=== PATIENT | male | born 1935 | race Caucasian/White ===

== ENCOUNTER → 2016-11-30 | Outpatient (CLI) | payer MEDICARE, BC ==
[2014-11-26 15:28] VITALS: BP 150/70
[~2016-11-30] MED LIST: ALPR0.254 PO; AMLO5TAB2 PO; CITA10TA8 PO; HYDR-2762 PO; IBUP-1060 PO; LISI-334 PO; LORA10TA3 PO; NAPR500T3 PO; OMEP40CA5 PO; ROPI1TAB PO
--- NOTE | 2016-11-30 15:10 | RAD ---
MR BRAIN HISTORY: MEMORY LOSS, RECENT FALLS WITH UNSTEADY GAIT, NO SX HX, NO PRIORS TECHNIQUE: Axial diffusion weighted imaging was obtained. Additional sagittal T1, axial T1, axial FLAIR, and axial T2 weighted imaging of the brain was also performed. FINDINGS: There are scattered foci of T2/FLAIR signal hyperintensity throughout the periventricular and deep hemispheric white matter bilaterally. This is nonspecific but most likely related to chronic small vessel ischemic disease. An old lacunar infarct is noted in the left buchanan radiata. There is also an old lacunar infarct in the left cerebellar hemisphere. No restricted diffusion to indicate acute infarct. No extra-axial fluid collections. No midline shift or mass effect. Ventricular size is appropriate. Midline structures have a normal anatomic configuration. Basal cisterns are patent. Arterial flow voids at the skull base and major dural venous sinuses are maintained. The right globe demonstrates a thin lens. Paranasal sinuses and mastoid air cells are clear. IMPRESSION: No acute or recent infarct. No acute intracranial abnormality. 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 Electronically signed by: Thad Johansen MD (11/30/2016 3:07 PM)
== END | disposition home or self-care (01) ==
LOC: MRI 14:05
PROVIDERS: ATTEND Nurse Practitioner Adult Health
DX: I63.9 Cerebral infarction, unspecified (principal); G31.84 Mild cognitive impairment of uncertain or unknown etiology; R53.1 Weakness; R29.6 Repeated falls; I10 Essential (primary) hypertension; F41.8 Other specified anxiety disorders; R26.81 Unsteadiness on feet
CPT/HCPCS: 70551

== ENCOUNTER → 2017-03-12 | Outpatient (CLI) | payer MEDICARE, BC ==
[2014-11-26 15:28] VITALS: BP 150/70
--- NOTE | 2017-03-12 08:46 | KCIC ---
MRI Lumbar Spine without contrast History: Radiculitis, chronic low back pain, pain in the lower extremities bilaterally Technique: Multiplanar, multi sequential noncontrast MR imaging was performed of the lumbar spine. Contrast: None Comparison: None available at this time Findings: There is grade 1 anterior spondylolisthesis at L4-5. Lumbar vertebral body stature is overall adequate, multilevel small Schmorl's nodes. There is multilevel variable advanced degenerative disc disease throughout the lumbar spine. There is multilevel endplate edema greatest at L2-3, L4-5, L5-S1, to lesser degree L1-2, very minimally at L3-4. There are T2 hyperintense foci of the sacrum bilaterally centered about S2-S3 levels likely due to Tarlov cysts, largest on the right up to approximately 1.6 cm AP and on the left up to 2.2 cm longitudinal. Conus terminates at L1. There is very mild S-shaped scoliosis. Some edema of the bilateral L5 pedicles extending to the facet articular processes is likely reactive/degenerative in etiology. T11-12: There is buckling of the ligamentum flavum and facet degenerative change on the right. There is a very shallow posterior bulge/protrusion. Spinal canal is not significantly narrowed. There is likely [id number] narrowing of the right neural foramen. T12-L1: There is facet degenerative change and minimal buckling of the ligamentum flavum. There is a very small extrusion below the intervertebral disc space in the right lateral recess, mild right lateral recess stenosis. There is mild narrowing of the right neural foramen. L1-L2: There is a broad protrusion more eccentric to the left lateral recess, associated annular tear. There is severe buckling of the ligamentum flavum and moderate facet hypertrophic change. There is prominence of posterior epidural fat. Combination of findings results in severe left lateral recess stenosis and contact descending left as L2 nerve root, moderate narrowing of the central canal and right lateral recess. There is moderate to severe narrowing the right neural foramen, also fairly severe narrowing the left neural foramen. There is contact of the exiting L1 nerve roots greater on the left. L2-L3: There is prominence of posterior epidural fat. There is mild to moderate buckling of the ligamentum flavum and moderate facet hypertrophic change. There is a broad protrusion. There is [id number] narrowing of the far left lateral recess. There is mild attenuation of the thecal sac mostly from posterior epidural lipomatosis. There is moderate narrowing of the left neural foramen, right neural foramen adequate. L3-L4: There is minimal disc osteophyte complex and bulge. There is mild narrowing of the far left lateral recess. There is prominence of posterior epidural fat. There is mild buckling of the ligamentum flavum and [id number] facet hypertrophic change. Right neural foramen is adequate. There is moderate narrowing of the left neural foramen. L4-L5: There is fairly severe right and moderate left facet degenerative change. There is mild to moderate buckling of the ligamentum flavum. There is prominence of posterior epidural fat. There is mild partial uncovering of the posterior aspect of the disc due to spondylolisthesis with superimposed bulge/protrusion. There is overall mild narrowing of the far lateral recesses bilaterally greater on the right. There is moderate to severe narrowing of the right neural foramen with contact exiting right L4 nerve root, [id number] narrowing of the left neural foramen. L5-S1: There is shallow broad protrusion more eccentric to the right lateral recess. There is mild facet hypertrophic change greater on the left. Spinal canal is overall adequate. There is moderate to severe neural foramina compromise bilaterally with contact of the exiting L5 nerve roots. Disc osteophyte complex is also near the extraforaminal right L5 nerve root. Impression: 1. There is multilevel fairly advanced degenerative disc disease throughout lumbar spine, variably endplate edema likely reactive/degenerative in etiology. There is multilevel mild spondylosis. 2. There is severe left lateral recess stenosis L1-2, moderate narrowing of the central canal and right lateral recess at this level. There is other variable lateral recess stenosis as described greatest in the left at L2-3. 3. There is multilevel lumbar neural foramina compromise, moderate to severe narrowing bilaterally at L5-S1 and L1-2 and on the right at L4-5, to lesser degree at other levels. 4. 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 5. There is mild grade 1 anterior spondylolisthesis at L4-5 at which there is facet degenerative change. Electronically signed by: Barrett Evans MD (03/12/2017 8:42 AM) [facility]
== END | disposition home or self-care (01) ==
LOC: KCIC MRI 07:42
PROVIDERS: ATTEND Anesthesiology Pain Medicine
DX: M51.16 Intervertebral disc disorders with radiculopathy, lumbar region (principal); M48.06 Spinal stenosis, lumbar region; M47.896 Other spondylosis, lumbar region; G89.29 Other chronic pain
CPT/HCPCS: 72148

== ENCOUNTER → 2018-02-04 | Outpatient (CLI) | payer MEDICARE, BC | END | disposition home or self-care (01) | LOC: KCIC MRI 08:02 | DX: M19.072 Primary osteoarthritis, left ankle and foot (principal); M72.2 Plantar fascial fibromatosis; I10 Essential (primary) hypertension; M16.12 Unilateral primary osteoarthritis, left hip | CPT/HCPCS: 73721 ==

== ENCOUNTER 2018-10-16 11:27 | Inpatient (IN) | payer MEDICARE, BC ==
[~2018-10-16] VITALS: Ht 180.3 cm; Wt 57.2 kg
[~2018-10-16 11:27] MED LIST changes: +AMLO5TAB10 PO; -AMLO5TAB2 PO; -HYDR-2762 PO; +HYDR-2765 PO; +NAPR-514 PO; -NAPR500T3 PO
[2018-10-16] MEDS ORDERED: LIDOCAINE 1% PF 2 ML VIAL. ONE (12:52)
[2018-10-16] MEDS ORDERED: IOHEXOL 300 MG/ML 100ML VIAL. ONE (12:52)
[2018-10-16] MEDS ORDERED: IODIXANOL 320 MG/ML 100 ML VIAL. ONE (12:56)
[2018-10-16] MEDS ORDERED: fentaNYL PF VIAL 100 MCG/2 ML VIAL ONE (13:08)
[2018-10-16] MEDS ORDERED: MIDAZOLAM HCL/PF 2 MG/2 ML VIAL. ONE (13:08)
[2018-10-16] MEDS ORDERED: VERAPAMIL 5 MG/2 ML VIAL. ONE (13:08)
[2018-10-16] MEDS ORDERED: HEPARIN for IV BOLUS 10,000 UNIT/10 ML VIAL. ONE (13:08)
[2018-10-16] MEDS ORDERED: NITROGLYCERIN 200 MCG/2 ML SYRINGE FOR CATH/VASC LAB. ONE ×2 (13:08→14:00)
[2018-10-16] MEDS ORDERED: MIDAZOLAM HCL/PF 2 MG/2 ML VIAL. IV ONE (13:30)
[2018-10-16] MEDS ORDERED: VERAPAMIL 5 MG/2 ML VIAL. IART ONE (13:30)
[2018-10-16] MEDS ORDERED: fentaNYL PF VIAL 100 MCG/2 ML VIAL IV ONE (13:30)
[2018-10-16] MEDS ORDERED: HEPARIN for IV BOLUS 10,000 UNIT/10 ML VIAL. IART ONE (13:30)
[2018-10-16] MEDS ORDERED: LIDOCAINE 1% PF 2 ML VIAL. INJ ONE (13:30)
[2018-10-16] MEDS ORDERED: NITROGLYCERIN 200 MCG/2 ML SYRINGE FOR CATH/VASC LAB. IART ONE (13:30)
[2018-10-16] MEDS ORDERED: CLOPIDOGREL BISULFATE 75 MG TABLET PO ONE (14:00)
[2018-10-16] MEDS ORDERED: IV NORMAL SALINE 500ML BAG 500 ML IV ONE (14:00)
[2018-10-16 14:02] VITALS: BP 157/86
--- NOTE | 2018-10-16 14:10 | PDOC ---
Provider Note Provider Note CC: Chest pain HPI: 83 y.o male presented to OSH with chest pain. Positive troponin and significant EKG changes, brought to [facility] urgent cath. At baseline he has been doing well. No chest pain, orthopnea, PND or LE edema. He woke up with "funny" feeling and went to PCP, ekg showed possible anterior ischemia, then he was sent to ER where trop was elevated at 0.9. Now without any chest pain . Pmhx: 1. HTN 2. Prior tobacco abuse Famhx: No significant history. Sochx: prior smoker, no illicits, no alcohol. Lives with . Meds: See MRAD ALL: NKDA GEN.: No apparent distress. Alert and oriented. HEENT: Head is normocephalic, atraumatic NECK: Supple. LUNGS: Clear to auscultation. HEART: RRR, S1, S2 present. Peripheral pulses intact ABDOMEN: Soft, nontender. Positive bowel sounds. EXTREMITIES: Without any cyanosis. NEUROLOGIC: Normal speech, normal tone PSYCHIATRIC: Normal affect, normal mood. SKIN: No ulcerations Labs reviewed. Cr 1.5 Cath with one vessel cAD Impression: 1. Troponin elevation likely due to spasm - type 2 NSTEMI 2. HTN Plan: 1. Continue asa, plavix, statin therapy 2. Plan for imdur therapy and b-cassie. 3. if asymptomatic in a.m ok to DC. May consider outpt PCI if needed if persistent pain on two anti-anginals. Thanks FREDIS RAMIREZ MD Oct 16, 2018 14:10
[2018-10-16] MEDS ORDERED: ATOR10TA PO (14:38)
[2018-10-16] MEDS ORDERED: TAMS0.4C97 PO (14:38)
[2018-10-16] MEDS ORDERED: AMLO5TAB4 PO (14:38)
[2018-10-16] MEDS: ISOSORBIDE MONONITRATE ER 30 MG TAB.ER.24H PO SCH (14:51)
[2018-10-16 15:23] VITALS: BP 149/70
--- NOTE | 2018-10-16 16:27 | PDOC1 ---
History and Physical Date of Admission Date of Admission DATE: 10/16/18 TIME: 16:18 Identification/Chief Complaint Chief Complaint PRESENTED TO PCP OFFICE, WITH UNSTABLE CHEST PAIN, TRANSPORTED HERE FOR EMERGENT CATH TODAY Past Medical History Past Medical History Past Medical History Cardiovascular: HTN Family History Family History: Hypertension Social History Smoke: No ALCOHOL: none Drugs: None ROS Review of System ROS 14 pt otherwise neg Physical Exam General: Cooperative, HEENT: Atraumatic, PERRLA, EOMI, Mucous membr. moist/pink Lungs: Clear to auscultation, Normal air movement Heart: S1S2, RRR, no gallops, no murmurs, no jug vein distention Abdomen: Normal bowel sounds, Soft, No tenderness, No hepatospenomegaly, No masses Extremities: No clubbing, No cyanosis, No edema, Normal pulses, No tenderness/ swelling Skin: No rashes, No breakdown, No significant lesion Neuro: Normal tone, Sensation intact, Cranial nerves 3-12 NL Cardiovascular: HTN, Hyperlipidemia Pulmonary: No pertinent hx Heme/Onc: No pertinent hx Renal/: No pertinent hx, Benign prostatic enlarg. Family History Family History: Hypertension Social History Smoke: Quit ALCOHOL: none Drugs: None Current Medications Current Medications Current Medications Lidocaine HCl (Xylocaine-Mpf 1% 2ml Vial) 2 ml STK-MED ONCE .ROUTE ; Start 10/16 at 12:52; Stop 10/16/18 at 12:53; Status DC Iohexol (Omnipaque 300 Mg/ml) 100 ml STK-MED ONCE .ROUTE ; Start 10/16/18 at 12: 52; Stop 10/16/18 at 12:53; Status DC Heparin Sodium/ Sodium Chloride 1,000 ml @ As Directed STK-MED ONCE .ROUTE ; Start 10/16/18 at 12:52; Stop 10/16/18 at 12:53; Status DC Iodixanol (Visipaque 320) 100 ml STK-MED ONCE .ROUTE ; Start 10/16/18 at 12:56; Stop 10/16/18 at 12:57; Status DC Fentanyl Citrate (Fentanyl 2ml Vial) 100 mcg STK-MED ONCE .ROUTE ; Start at 13:08; Stop 10/16/18 at 13:09; Status DC Midazolam HCl (Versed) 2 mg STK-MED ONCE .ROUTE ; Start 10/16/18 at 13:08; Stop 10/16/18 at 13:09; Status DC Heparin Sodium (Porcine) (Heparin Sodium) 10,000 unit STK-MED ONCE .ROUTE ; Start 10/16/18 at 13:08; Stop 10/16/18 at 13:09; Status DC Verapamil HCl (Verapamil) 5 mg STK-MED ONCE .ROUTE ; Start 10/16/18 at 13:08; Stop 10/16/18 at 13:09; Status DC Nitroglycerin (Nitroglycerin) 200 mcg STK-MED ONCE .ROUTE ; Start 10/16/18 at 13 :08; Stop 10/16/18 at 13:09; Status DC Nitroglycerin (Nitroglycerin) 200 mcg 1X ONCE IART Last administered on at 13:30; Start 10/16/18 at 13:30; Stop 10/16/18 at 13:31; Status DC Verapamil HCl (Verapamil) 2.5 mg 1X ONCE IART Last administered on 10/16/18 13:30; Start 10/16/18 at 13:30; Stop 10/16/18 at 13:31; Status DC Heparin Sodium (Porcine) (Heparin Sodium) 2,500 unit 1X ONCE IART Last administered on 10/16/18 13:30; Start 10/16/18 at 13:30; Stop 10/16/18 at 13:31 ; Status DC Heparin Sodium/ Sodium Chloride (HEPARIN for ARTERIAL LINE FLUSH) 1,000 unit 1X ONCE IART Last administered on 10/16/18 13:30; Start 10/16/18 at 13:30; Stop 10/16/18 at 13:31; Status DC Heparin Sodium/ Sodium Chloride (HEPARIN for ARTERIAL LINE FLUSH) 1,000 unit 1X ONCE IART Last administered on 10/16/18 13:30; Start 10/16/18 at 13:30; Stop 10/16/18 at 13:31; Status DC Midazolam HCl (Versed) 2 mg 1X ONCE IV Last administered on 10/16/18 13:30; Start 10/16/18 at 13:30; Stop 10/16/18 at 13:31; Status DC Fentanyl Citrate (Fentanyl 2ml Vial) 100 mcg 1X ONCE IV Last administered on 13:30; Start 10/16/18 at 13:30; Stop 10/16/18 at 13:31; Status DC Lidocaine HCl (Xylocaine-Mpf 1% 2ml Vial) 2 ml 1X ONCE INJ Last administered on 10/16/18at 13:30; Start 10/16/18 at 13:30; Stop 10/16/18 at 13:31; Status DC Clopidogrel Bisulfate (Plavix) 300 mg 1X ONCE PO Last administered on at 14:50; Start 10/16/18 at 14:00; Stop 10/16/18 at 14:01; Status DC Isosorbide Mononitrate (Imdur) 30 mg DAILY PO Last administered on 10/16/18at 14 :51; Start 10/16/18 at 14:00 Sodium Chloride 500 ml @ 500 mls/hr 1X ONCE IV Last administered on at 13:59; Start 10/16/18 at 14:00; Stop 10/16/18 at 14:59; Status DC Nitroglycerin (Nitroglycerin) 200 mcg STK-MED ONCE .ROUTE ; Start 10/16/18 at 14 :00; Stop 10/16/18 at 14:01; Status DC Amlodipine Besylate (Norvasc) 5 mg DAILY PO ; Start 10/17/18 at 09:00 Atorvastatin Calcium (Lipitor) 10 mg HS PO ; Start 10/16/18 at 21:00 Citalopram Hydrobromide (CeleXA) 10 mg DAILY PO ; Start 10/17/18 at 09:00 Tamsulosin HCl (Flomax) 0.4 mg DAILY PO ; Start 10/17/18 at 09:00 Ropinirole HCl (Requip) 2 mg HS PO ; Start 10/16/18 at 21:00 Aspirin (Ecotrin) 81 mg DAILYWBKFT PO ; Start 10/17/18 at 08:00 Clopidogrel Bisulfate (Plavix) 75 mg DAILYWBKFT PO ; Start 10/17/18 at 08:00 Active Scripts Active Reported Norvasc (Amlodipine Besylate) 5 Mg Tablet 5 Mg PO DAILY Flomax (Tamsulosin Hcl) 0.4 Mg Cap.er.24h 0.4 Mg PO DAILY Lipitor (Atorvastatin Calcium) 10 Mg Tablet 10 Mg PO HS Requip (Ropinirole Hcl) 1 Mg Tablet 2 Tab PO QHS Celexa (Citalopram Hydrobromide) 10 Mg Tablet 1 Tab PO DAILY Allergies Allergies: Coded Allergies: I S O L A T I O N *CONTACT* (Verified Allergy, Unknown, 11/24/14) mrsa + No Known Medication Allergies (Verified Allergy, Unknown, 11/24/14) ROS Review of System 14 PT ROS OTHERWISE NEG General: No: Chills, Night Sweats, Fatigue, Malaise, Appetite, Other PSYCHOLOGICAL ROS: No: Anxiety, Behavioral Disorder, Concentration difficultie , Decreased libido, Depression, Disorientation, Hallucinations, Hostility, Irritablity, Memory difficulties, Mood Swings, Obsessive thoughts, Physical abuse, Sexual abuse, Sleep disturbances, Suicidal ideation, Other Eyes: No Blurry vision, No Decreased vision, No Double vision, No Dry eyes, No Excessive tearing, No Eye Pain, No Itchy Eyes, No Loss of vision, No Photophobia , No Scotomata, No Uses contacts, No Uses glasses, No Other ALLERGY AND IMMUNOLOGY: No: Hives, Insect Bite Sensitivity, Itchy/Watery Eyes, Nasal Congestion, Post Nasal Drip, Seasonal Allergies, Other Hematological and Lymphatic: No: Bleeding Problems, Blood Clots, Blood Transfusions, Brusing, Night Sweats, Pallor, Swollen Lymph Nodes, Other Respiratory: No: Cough, Hemoptysis, Orthopnea, Pleuritic Pain, Shortness of breath, SOB with excertion, Sputum Changes, Stridor, Tachypnea, Wheezing, Other Cardiovascular: yes Chest Pain Genitourinary: No Dysuria, No Frequency, No Incontinence, No Hematuria, No Retention, No Discharge, No Urgency, No Pain, No Flank Pain, No Other, No , No , No , No , No , No , No Neurological: No Behavorial Changes, No Bowel/Bladder ControlChng, No Confusion , No Dizziness, No Gait Disturbance, No Headaches, No Impaired Coord/balance, No Memory Loss, No Numbness/Tingling, No Seizures, No Speech Problems, No Tremors, No Visual Changes, No Weakness, No Other Skin: No Dry Skin, No Eczema, No Hair Changes, No Lumps, No Mole Changes, No Mottling, No Nail Changes, No Pruritus, No Rash, No Skin Lesion Changes, No Other, No Acne Physical Exam Physical Exam Physical Exam General: Cooperative, HEENT: Atraumatic, PERRLA, EOMI, Mucous membr. moist/pink Lungs: Clear to auscultation, Normal air movement Heart: S1S2, RRR, no gallops, no murmurs, no jug vein distention Abdomen: Normal bowel sounds, Soft, No tenderness, No hepatospenomegaly, No masses Extremities: No clubbing, No cyanosis, No edema, Normal pulses, No tenderness/ swelling Skin: No rashes, No breakdown, No significant lesion Neuro: Normal tone, Sensation intact, Cranial nerves 3-12 NL General: Alert, Oriented X3, Cooperative, No acute distress HEENT: Atraumatic, PERRLA Lungs: Clear to auscultation Heart: RRR, no thrills Abdomen: Normal bowel sounds, Soft, No tenderness, No hepatosplenomegaly Rectal Exam: not examined Extremities: No cyanosis Neuro: Normal speech, Strength at 5/5 X4 ext, Cranial nerves 3-12 NL Psych/Mental Status: Mental status NL, Mood NL Vitals Vitals Vital Signs Date Time Temp Pulse Resp B/P (MAP) Pulse Ox O2 Delivery O2 Flow Rate FiO2 10/16/18 15:23 98.7 79 149/70 (96) 97 Nasal Cannula 2.0 98.7 10/16/18 14:02 12 VTE Prophylaxis Ordered VTE Prophylaxis Devices: Yes VTE Pharmacological Prophylaxi: Yes Assessment/Plan Assessment/Plan impression 1. NSTEMI 2. CAD , noncritical stenosis 3. remote tobacco abuse 4. hypertension 5. HXdepression, anxiety 6. hx anemia plan icu bed urgent cath today cardiology following risk reduction flp in AM BP CONTROL PLAVIX cbc, comp 37 min cc time MINERVA RUSH MD Oct 16, 2018 16:27
--- NOTE | 2018-10-16 16:28 | CARD ---
MR#: [id number] Date of Study: 10/16/2018 Ordering Physician: FREDIS CARCAMO, Referring Physician: BROOKE ARANDA Tech: JOSIAH SIMPSON RTR APPROVED REPORT Technologist: JOSIAH SIMPSON RTR Nurse: YFN JEREZ RN Procedure(s) performed: MODERATE SEDATION TIME: 35 MINUTES FLUORO TIME:2.7 DOSE: 48 GYCM2 CONTRAST TOTAL:60 LHC, Coronary angiography HISTORY The patient is a 83 year-old male with a history of : hypertension, dyslipidemia. INDICATION The indication(s) include : non-STEMI , abnormal ECG, transient RADHA. PROCEDURE NARRATIVE INFORMED CONSENT: After explaining the risks and benefits of the procedure and alternatives, informed consent was obtained. The patient was brought electively to the cardiac catheterization lab. A timeout was performed confi rming the patient's name, date of , procedure, and site of procedure. All necessary personnel w ere wearing the appropriate protective equipment and radiation monitor devices. (See nursing notes for medications administered). ACCESS: The right wrist was sterilely prepped and draped in the usual fashion. The right wrist was infiltrat ed with 1 mL of 2% lidocaine for subcutaneous anesthesia. A 6 Spanish Terumo glide sheath was inserte d into the right radial artery without difficulty. CORONARY ANGIOGRAPHY: Right and left coronary angiography was performed using a 6Fr TIG 4.0 catheter. Left ventricular en d diastolic pressure was obtained with a TIG catheter and pullback was performed. All catheter excha nges and advancements were performed over a guidewire. CLOSURE: At case completion the right radial sheath was removed and a Terumo radial band was applied with 13 m l of air. COMPLICATIONS: The patient tolerated the procedure well and there were no immediate complications. FINDINGS: HEMODYNAMICS: LVEDP 14 mm Hg No gradient on LV to aortic pullback. AO: 140/80 LEFT VENTRICULOGRAM: Deferred due to mild renal dysfunction at baseline. CORONARY ANGIOGRAPHY: LM is a large caliber vessel with normal angiographic appearance. LAD is a large caliber vessel with mild luminal irregularities, distal 70% stenosis that appears impr benita on NTG administration. D1 is a small caliber vessel with a proximal 80% stenosis. LCx is a large caliber non-dominant vessel with normal angiographic appearance. OM1 is a large caliber vessel with normal angiographic appearance. RCA is a large caliber dominant vessel with a proximal 30% stenosis. RPDA and RPL are moderate caliber vessels with normal angiographic appearance. Conclusion 1. One vessel CAD with component of spasm 2. Normal LVEDP Recommendations 1. Medical therapy with anti-anginals, plavix, asa, statin. 2. Check echo 3. If persistent pain despite adequate medical therapy, plan for outpt PCI. Signed by : Fredis Carcamo, Electronically Approved : 10/16/2018 16:28:22
[2018-10-16] MEDS ORDERED: ZOLPIDEM 5 MG TABLET. PO PRN (16:30)
[2018-10-16] MEDS: CARVEDILOL 3.125 MG TABLET. PO SCH (17:25)
[2018-10-16 19:00] VITALS: BP 124/73
[2018-10-16 20:20] LABS: BASO % 0 % (0-3); EOS # 0.2 x10^3/uL (0.0-0.7); EOS % 3 % (0-3); HEMATOCRIT 36.8 % (39.0-53.0); HEMOGLOBIN 12.7 g/dL (13.0-17.5); LYMPH # 2.3 x10^3/uL (1.0-4.8); LYMPH % 36 % (24-48); MEAN CORPUSCULAR HEMOGLOBIN 34 pg (25-35); MEAN CORPUSCULAR HGB CONC 34 g/dL (31-37); MEAN CORPUSCULAR VOLUME 99 fL (79-100); MONO # 0.7 x10^3/uL (0.0-1.1); MONO % 11 % (0-9); NEUT # 3.1 x10^3uL (1.8-7.7); NEUT % 50 % (31-73); PLATELET COUNT 170 x10^3/uL (140-400); RED BLOOD COUNT 3.71 x10^6/uL (4.30-5.70); RED CELL DISTRIBUTION WIDTH 13.9 % (11.5-14.5); WHITE BLOOD COUNT 6.3 x10^3/uL (4.0-11.0)
[2018-10-16 20:40] LABS: CALCIUM 8.4 mg/dL (8.5-10.1); CREATININE 1.4 mg/dL (0.7-1.3); GFR 48.4; POTASSIUM 4.1 mmol/L (3.5-5.1); TOTAL BILIRUBIN 0.6 mg/dL (0.2-1.0); TOTAL PROTEIN 6.1 g/dL (6.4-8.2)
[2018-10-16] MEDS ORDERED: rOPINIRole 1 MG TABLET. PO SCH (21:00)
[2018-10-16] MEDS ORDERED: ATORVASTATIN CALCIUM 10 MG TABLET. PO SCH (21:00)
[2018-10-16 21:20] VITALS: BP 149/70
[2018-10-16 23:00] VITALS: BP 109/49
[2018-10-17] VITALS (8 sets, daily range): BP systolic 119–153; BP diastolic 63–78
[2018-10-17 05:42] LABS: CHOLESTEROL/HDL RATIO 3.2
--- NOTE | 2018-10-17 07:42 | PDOC ---
PROGRESS NOTES Chief Complaint Chief Complaint 1. NSTEMI 2. CAD , noncritical stenosis 3. remote tobacco abuse 4. hypertension 5. HXdepression, anxiety 6. hx anemia History of Present Illness History of Present Illness 83yo M p/w atypical chest pain, troponin of 0.9 to his PCP, was admitted urgent cath. 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 One vessel CAD with component of spasm (LAD is a large caliber vessel with mild luminal irregularities, distal 70% stenosis that appears improved on NTG administration. and D1 is a small caliber vessel with a proximal 80% stenosis. 2. Normal LVEDP No longer feeling funny. Denies CP, SOB. Awaiting echo. Optimized on meds and recommend f/u outpatient PCI if necessary. Outpatient BP monitoring D/c after echo Vitals Vitals Vital Signs Date Time Temp Pulse Resp B/P (MAP) Pulse Ox O2 Delivery O2 Flow Rate FiO2 10/17/18 03:00 98.3 95 22 133/63 (86) 95 Room Air 98.3 10/16/18 21:20 2.0 Physical Exam General: Alert, Oriented X3, Cooperative, No acute distress Lungs: Clear Abdomen: Normal bowel sounds, Soft, No tenderness, No hepatosplenomegaly Extremities: No cyanosis Labs LABS Laboratory Tests Test 10/16/18 20:10 10/17/18 05:00 White Blood Count 6.3 x10^3/uL (4.0-11.0) Red Blood Count 3.71 x10^6/uL (4.30-5.70) Hemoglobin 12.7 g/dL (13.0-17.5) Hematocrit 36.8 % (39.0-53.0) Mean Corpuscular Volume 99 fL (79-100) Mean Corpuscular Hemoglobin 34 pg (25-35) Mean Corpuscular Hemoglobin Concent 34 g/dL (31-37) Red Cell Distribution Width 13.9 % (11.5-14.5) Platelet Count 170 x10^3/uL (140-400) Neutrophils (%) (Auto) 50 % (31-73) Lymphocytes (%) (Auto) 36 % (24-48) Monocytes (%) (Auto) 11 % (0-9) Eosinophils (%) (Auto) 3 % (0-3) Basophils (%) (Auto) 0 % (0-3) Neutrophils # (Auto) 3.1 x10^3uL (1.8-7.7) Lymphocytes # (Auto) 2.3 x10^3/uL (1.0-4.8) Monocytes # (Auto) 0.7 x10^3/uL (0.0-1.1) Eosinophils # (Auto) 0.2 x10^3/uL (0.0-0.7) Basophils # (Auto) 0.0 x10^3/uL (0.0-0.2) Sodium Level 139 mmol/L (136-145) Potassium Level 4.1 mmol/L (3.5-5.1) Chloride Level 105 mmol/L (98-107) Carbon Dioxide Level 26 mmol/L (21-32) Anion Gap 8 (6-14) Blood Urea Nitrogen 30 mg/dL (8-26) Creatinine 1.4 mg/dL (0.7-1.3) Estimated GFR (Cockcroft-Gault) 48.4 BUN/Creatinine Ratio 21 (6-20) Glucose Level 104 mg/dL (70-99) Calcium Level 8.4 mg/dL (8.5-10.1) Total Bilirubin 0.6 mg/dL (0.2-1.0) Aspartate Amino Transf (AST/SGOT) 40 U/L (15-37) Alanine Aminotransferase (ALT/SGPT) 21 U/L (16-63) Alkaline Phosphatase 103 U/L (46-116) Total Protein 6.1 g/dL (6.4-8.2) Albumin 3.0 g/dL (3.4-5.0) Albumin/Globulin Ratio 1.0 (1.0-1.7) Troponin I Quantitative 5.145 ng/mL (0.000-0.055) Triglycerides Level 74 mg/dL (0-150) Cholesterol Level 119 mg/dL (0-200) LDL Cholesterol, Calculated 67 mg/dL (0-100) VLDL Cholesterol, Calculated 15 mg/dL (0-40) Non-HDL Cholesterol Calculated 82 mg/dL (0-129) HDL Cholesterol 37 mg/dL (40-60) Cholesterol/HDL Ratio 3.2 Comment Review of Relevant I have reviewed the following items isaiah (where applicable) has been applied. Labs Laboratory Tests Test 10/16/18 20:10 10/17/18 05:00 White Blood Count 6.3 x10^3/uL (4.0-11.0) Red Blood Count 3.71 x10^6/uL (4.30-5.70) Hemoglobin 12.7 g/dL (13.0-17.5) Hematocrit 36.8 % (39.0-53.0) Mean Corpuscular Volume 99 fL (79-100) Mean Corpuscular Hemoglobin 34 pg (25-35) Mean Corpuscular Hemoglobin Concent 34 g/dL (31-37) Red Cell Distribution Width 13.9 % (11.5-14.5) Platelet Count 170 x10^3/uL (140-400) Neutrophils (%) (Auto) 50 % (31-73) Lymphocytes (%) (Auto) 36 % (24-48) Monocytes (%) (Auto) 11 % (0-9) Eosinophils (%) (Auto) 3 % (0-3) Basophils (%) (Auto) 0 % (0-3) Neutrophils # (Auto) 3.1 x10^3uL (1.8-7.7) Lymphocytes # (Auto) 2.3 x10^3/uL (1.0-4.8) Monocytes # (Auto) 0.7 x10^3/uL (0.0-1.1) Eosinophils # (Auto) 0.2 x10^3/uL (0.0-0.7) Basophils # (Auto) 0.0 x10^3/uL (0.0-0.2) Sodium Level 139 mmol/L (136-145) Potassium Level 4.1 mmol/L (3.5-5.1) Chloride Level 105 mmol/L (98-107) Carbon Dioxide Level 26 mmol/L (21-32) Anion Gap 8 (6-14) Blood Urea Nitrogen 30 mg/dL (8-26) Creatinine 1.4 mg/dL (0.7-1.3) Estimated GFR (Cockcroft-Gault) 48.4 BUN/Creatinine Ratio 21 (6-20) Glucose Level 104 mg/dL (70-99) Calcium Level 8.4 mg/dL (8.5-10.1) Total Bilirubin 0.6 mg/dL (0.2-1.0) Aspartate Amino Transf (AST/SGOT) 40 U/L (15-37) Alanine Aminotransferase (ALT/SGPT) 21 U/L (16-63) Alkaline Phosphatase 103 U/L (46-116) Total Protein 6.1 g/dL (6.4-8.2) Albumin 3.0 g/dL (3.4-5.0) Albumin/Globulin Ratio 1.0 (1.0-1.7) Troponin I Quantitative 5.145 ng/mL (0.000-0.055) Triglycerides Level 74 mg/dL (0-150) Cholesterol Level 119 mg/dL (0-200) LDL Cholesterol, Calculated 67 mg/dL (0-100) VLDL Cholesterol, Calculated 15 mg/dL (0-40) Non-HDL Cholesterol Calculated 82 mg/dL (0-129) HDL Cholesterol 37 mg/dL (40-60) Cholesterol/HDL Ratio 3.2 Laboratory Tests Test 10/16/18 20:10 10/17/18 05:00 White Blood Count 6.3 x10^3/uL (4.0-11.0) Red Blood Count 3.71 x10^6/uL (4.30-5.70) Hemoglobin 12.7 g/dL (13.0-17.5) Hematocrit 36.8 % (39.0-53.0) Mean Corpuscular Volume 99 fL (79-100) Mean Corpuscular Hemoglobin 34 pg (25-35) Mean Corpuscular Hemoglobin Concent 34 g/dL (31-37) Red Cell Distribution Width 13.9 % (11.5-14.5) Platelet Count 170 x10^3/uL (140-400) Neutrophils (%) (Auto) 50 % (31-73) Lymphocytes (%) (Auto) 36 % (24-48) Monocytes (%) (Auto) 11 % (0-9) Eosinophils (%) (Auto) 3 % (0-3) Basophils (%) (Auto) 0 % (0-3) Neutrophils # (Auto) 3.1 x10^3uL (1.8-7.7) Lymphocytes # (Auto) 2.3 x10^3/uL (1.0-4.8) Monocytes # (Auto) 0.7 x10^3/uL (0.0-1.1) Eosinophils # (Auto) 0.2 x10^3/uL (0.0-0.7) Basophils # (Auto) 0.0 x10^3/uL (0.0-0.2) Sodium Level 139 mmol/L (136-145) Potassium Level 4.1 mmol/L (3.5-5.1) Chloride Level 105 mmol/L (98-107) Carbon Dioxide Level 26 mmol/L (21-32) Anion Gap 8 (6-14) Blood Urea Nitrogen 30 mg/dL (8-26) Creatinine 1.4 mg/dL (0.7-1.3) Estimated GFR (Cockcroft-Gault) 48.4 BUN/Creatinine Ratio 21 (6-20) Glucose Level 104 mg/dL (70-99) Calcium Level 8.4 mg/dL (8.5-10.1) Total Bilirubin 0.6 mg/dL (0.2-1.0) Aspartate Amino Transf (AST/SGOT) 40 U/L (15-37) Alanine Aminotransferase (ALT/SGPT) 21 U/L (16-63) Alkaline Phosphatase 103 U/L (46-116) Total Protein 6.1 g/dL (6.4-8.2) Albumin 3.0 g/dL (3.4-5.0) Albumin/Globulin Ratio 1.0 (1.0-1.7) Troponin I Quantitative 5.145 ng/mL (0.000-0.055) Triglycerides Level 74 mg/dL (0-150) Cholesterol Level 119 mg/dL (0-200) LDL Cholesterol, Calculated 67 mg/dL (0-100) VLDL Cholesterol, Calculated 15 mg/dL (0-40) Non-HDL Cholesterol Calculated 82 mg/dL (0-129) HDL Cholesterol 37 mg/dL (40-60) Cholesterol/HDL Ratio 3.2 Medications Current Medications Lidocaine HCl (Xylocaine-Mpf 1% 2ml Vial) 2 ml STK-MED ONCE .ROUTE ; Start 10/16 at 12:52; Stop 10/16/18 at 12:53; Status DC Iohexol (Omnipaque 300 Mg/ml) 100 ml STK-MED ONCE .ROUTE ; Start 10/16/18 at 12: 52; Stop 10/16/18 at 12:53; Status DC Heparin Sodium/ Sodium Chloride 1,000 ml @ As Directed STK-MED ONCE .ROUTE ; Start 10/16/18 at 12:52; Stop 10/16/18 at 12:53; Status DC Iodixanol (Visipaque 320) 100 ml STK-MED ONCE .ROUTE ; Start 10/16/18 at 12:56; Stop 10/16/18 at 12:57; Status DC Fentanyl Citrate (Fentanyl 2ml Vial) 100 mcg STK-MED ONCE .ROUTE ; Start at 13:08; Stop 10/16/18 at 13:09; Status DC Midazolam HCl (Versed) 2 mg STK-MED ONCE .ROUTE ; Start 10/16/18 at 13:08; Stop 10/16/18 at 13:09; Status DC Heparin Sodium (Porcine) (Heparin Sodium) 10,000 unit STK-MED ONCE .ROUTE ; Start 10/16/18 at 13:08; Stop 10/16/18 at 13:09; Status DC Verapamil HCl (Verapamil) 5 mg STK-MED ONCE .ROUTE ; Start 10/16/18 at 13:08; Stop 10/16/18 at 13:09; Status DC Nitroglycerin (Nitroglycerin) 200 mcg STK-MED ONCE .ROUTE ; Start 10/16/18 at 13 :08; Stop 10/16/18 at 13:09; Status DC Nitroglycerin (Nitroglycerin) 200 mcg 1X ONCE IART Last administered on at 13:30; Start 10/16/18 at 13:30; Stop 10/16/18 at 13:31; Status DC Verapamil HCl (Verapamil) 2.5 mg 1X ONCE IART Last administered on 10/16/18at 13:30; Start 10/16/18 at 13:30; Stop 10/16/18 at 13:31; Status DC Heparin Sodium (Porcine) (Heparin Sodium) 2,500 unit 1X ONCE IART Last administered on 10/16/18at 13:30; Start 10/16/18 at 13:30; Stop 10/16/18 at 13:31 ; Status DC Heparin Sodium/ Sodium Chloride (HEPARIN for ARTERIAL LINE FLUSH) 1,000 unit 1X ONCE IART Last administered on 10/16/18at 13:30; Start 10/16/18 at 13:30; Stop 10/16/18 at 13:31; Status DC Heparin Sodium/ Sodium Chloride (HEPARIN for ARTERIAL LINE FLUSH) 1,000 unit 1X ONCE IART Last administered on 10/16/18 13:30; Start 10/16/18 at 13:30; Stop 10/16/18 at 13:31; Status DC Midazolam HCl (Versed) 2 mg 1X ONCE IV Last administered on 10/16/18 13:30; Start 10/16/18 at 13:30; Stop 10/16/18 at 13:31; Status DC Fentanyl Citrate (Fentanyl 2ml Vial) 100 mcg 1X ONCE IV Last administered on 13:30; Start 10/16/18 at 13:30; Stop 10/16/18 at 13:31; Status DC Lidocaine HCl (Xylocaine-Mpf 1% 2ml Vial) 2 ml 1X ONCE INJ Last administered on 10/16/18 13:30; Start 10/16/18 at 13:30; Stop 10/16/18 at 13:31; Status DC Clopidogrel Bisulfate (Plavix) 300 mg 1X ONCE PO Last administered on at 14:50; Start 10/16/18 at 14:00; Stop 10/16/18 at 14:01; Status DC Isosorbide Mononitrate (Imdur) 30 mg DAILY PO Last administered on 10/16/18at 14 :51; Start 10/16/18 at 14:00 Sodium Chloride 500 ml @ 500 mls/hr 1X ONCE IV Last administered on 13:59; Start 10/16/18 at 14:00; Stop 10/16/18 at 14:59; Status DC Nitroglycerin (Nitroglycerin) 200 mcg STK-MED ONCE .ROUTE ; Start 10/16/18 at 14 :00; Stop 10/16/18 at 14:01; Status DC Amlodipine Besylate (Norvasc) 5 mg DAILY PO ; Start 10/17/18 at 09:00 Atorvastatin Calcium (Lipitor) 10 mg HS PO Last administered on 10/16/18at 20:49 ; Start 10/16/18 at 21:00 Citalopram Hydrobromide (CeleXA) 10 mg DAILY PO ; Start 10/17/18 at 09:00 Tamsulosin HCl (Flomax) 0.4 mg DAILY PO ; Start 10/17/18 at 09:00 Ropinirole HCl (Requip) 2 mg HS PO Last administered on 10/16/18at 20:49; Start 10/16/18 at 21:00 Aspirin (Ecotrin) 81 mg DAILYWBKFT PO ; Start 10/17/18 at 08:00 Clopidogrel Bisulfate (Plavix) 75 mg DAILYWBKFT PO ; Start 10/17/18 at 08:00 Zolpidem Tartrate (Ambien) 5 mg PRN QHS PRN PO INSOMNIA Last administered on 05/26at 20:49; Start 10/16/18 at 16:30 Carvedilol (Coreg) 3.125 mg BIDWMEALS PO Last administered on 10/16/18at 17:25; Start 10/16/18 at 17:00 Active Scripts Active Reported Norvasc (Amlodipine Besylate) 5 Mg Tablet 5 Mg PO DAILY Flomax (Tamsulosin Hcl) 0.4 Mg Cap.er.24h 0.4 Mg PO DAILY Lipitor (Atorvastatin Calcium) 10 Mg Tablet 10 Mg PO HS Requip (Ropinirole Hcl) 1 Mg Tablet 2 Tab PO QHS Celexa (Citalopram Hydrobromide) 10 Mg Tablet 1 Tab PO DAILY Vitals/I & O Vital Sign - Last 24 Hours 10/16/18 10/16/18 10/16/18 10/16/18 13:30 13:30 14:02 14:51 Pulse 80 80 79 Resp 14 12 B/P (MAP) 131/70 Pulse Ox 96 97 O2 Delivery Nasal Cannula Nasal Cannula O2 Flow Rate 2.0 2.0 10/16/18 10/16/18 10/16/18 10/16/18 15:23 17:25 19:00 20:00 Temp 98.7 98.0 98.7 98.0 Pulse 79 79 72 Resp 22 B/P (MAP) 149/70 (96) 149/70 124/73 (90) Pulse Ox 97 92 O2 Delivery Nasal Cannula Room Air Room Air O2 Flow Rate 2.0 10/16/18 10/16/18 10/17/18 21:20 23:00 03:00 Temp 98.5 98.3 98.5 98.3 Pulse 79 86 95 Resp 22 B/P (MAP) 109/49 (69) 133/63 (86) Pulse Ox 97 98 95 O2 Delivery Nasal Cannula Room Air Room Air O2 Flow Rate 2.0 Intake and Output 10/16/18 10/16/18 10/17/18 14:59 22:59 06:59 Intake Total 400 ml 0 ml Output Total 800 ml 250 ml Balance -400 ml -250 ml JAY GHOSH MD Oct 17, 2018 07:42
[2018-10-17 07:45] LABS: CALCIUM 8.5 mg/dL (8.5-10.1); CREATININE 1.4 mg/dL (0.7-1.3); GFR 48.4
[2018-10-17] MEDS ORDERED: CLOPIDOGREL BISULFATE 75 MG TABLET PO SCH (08:00)
[2018-10-17] MEDS ORDERED: ASPIRIN ENTERIC COATED 81 MG TABLET.DR. PO SCH (08:00)
--- NOTE | 2018-10-17 08:38 | PDOC ---
CARDIO Progress Notes Date and Time Date of Service 10/17/2018 Time of Evaluation 0815 Subjective Subjective: No Chest Pain, No Palpitations Vitals Vitals Vital Signs Date Time Temp Pulse Resp B/P (MAP) Pulse Ox O2 Delivery O2 Flow Rate FiO2 10/17/18 03:00 98.3 95 22 133/63 (86) 95 Room Air 98.3 10/16/18 21:20 2.0 Weight Weight [ ] Input and Output Intake and Output Intake and Output 10/17/18 07:00 Intake Total 400 ml Output Total 1050 ml Balance -650 ml Intake Oral 400 ml Output Urine Total 1050 ml Laboratory Labs Laboratory Tests Test 10/16/18 20:10 10/17/18 05:00 White Blood Count 6.3 x10^3/uL (4.0-11.0) Red Blood Count 3.71 x10^6/uL (4.30-5.70) Hemoglobin 12.7 g/dL (13.0-17.5) Hematocrit 36.8 % (39.0-53.0) Mean Corpuscular Volume 99 fL (79-100) Mean Corpuscular Hemoglobin 34 pg (25-35) Mean Corpuscular Hemoglobin Concent 34 g/dL (31-37) Red Cell Distribution Width 13.9 % (11.5-14.5) Platelet Count 170 x10^3/uL (140-400) Neutrophils (%) (Auto) 50 % (31-73) Lymphocytes (%) (Auto) 36 % (24-48) Monocytes (%) (Auto) 11 % (0-9) Eosinophils (%) (Auto) 3 % (0-3) Basophils (%) (Auto) 0 % (0-3) Neutrophils # (Auto) 3.1 x10^3uL (1.8-7.7) Lymphocytes # (Auto) 2.3 x10^3/uL (1.0-4.8) Monocytes # (Auto) 0.7 x10^3/uL (0.0-1.1) Eosinophils # (Auto) 0.2 x10^3/uL (0.0-0.7) Basophils # (Auto) 0.0 x10^3/uL (0.0-0.2) Sodium Level 139 mmol/L (136-145) 141 mmol/L (136-145) Potassium Level 4.1 mmol/L (3.5-5.1) 4.0 mmol/L (3.5-5.1) Chloride Level 105 mmol/L (98-107) 105 mmol/L (98-107) Carbon Dioxide Level 26 mmol/L (21-32) 24 mmol/L (21-32) Anion Gap 8 (6-14) 12 (6-14) Blood Urea Nitrogen 30 mg/dL (8-26) 31 mg/dL (8-26) Creatinine 1.4 mg/dL (0.7-1.3) 1.4 mg/dL (0.7-1.3) Estimated GFR (Cockcroft-Gault) 48.4 48.4 BUN/Creatinine Ratio 21 (6-20) Glucose Level 104 mg/dL (70-99) 103 mg/dL (70-99) Calcium Level 8.4 mg/dL (8.5-10.1) 8.5 mg/dL (8.5-10.1) Total Bilirubin 0.6 mg/dL (0.2-1.0) Aspartate Amino Transf (AST/SGOT) 40 U/L (15-37) Alanine Aminotransferase (ALT/SGPT) 21 U/L (16-63) Alkaline Phosphatase 103 U/L (46-116) Total Protein 6.1 g/dL (6.4-8.2) Albumin 3.0 g/dL (3.4-5.0) Albumin/Globulin Ratio 1.0 (1.0-1.7) Magnesium Level 2.0 mg/dL (1.8-2.4) Troponin I Quantitative 5.145 ng/mL (0.000-0.055) Triglycerides Level 74 mg/dL (0-150) Cholesterol Level 119 mg/dL (0-200) LDL Cholesterol, Calculated 67 mg/dL (0-100) VLDL Cholesterol, Calculated 15 mg/dL (0-40) Non-HDL Cholesterol Calculated 82 mg/dL (0-129) HDL Cholesterol 37 mg/dL (40-60) Cholesterol/HDL Ratio 3.2 Thyroid Stimulating Hormone (TSH) 1.739 uIU/mL (0.358-3.74) Physical Exam Chest: Symmetric LUNGS: Clear to Auscultation Heart: RRR (SR no significant ectopies), murmurs (3/6 systolic murmur to apex) Abdomen: Soft N/T Extremities: No Calf Tenderness Neurology: alert, oriented Other Exams right radial arteriotomy site intact, no erythema with small hematoma, no pain, neurovascular status to right hand intact. Assessment Assessment 1. NSTEMI: symptoms more from LAD vasopasm with distal LAD 70% and small caliber D1 with proximal 80% stenosis 2. HLP 3. HTN: controlled Recommendations 1. Continue with low dose imdur, norvasc and coreg. If BP is low then may change coreg to metop. 2. ECASA 81 mg and plavix. Lipitor. Encourage cardiac rehab 3. TTE today, Anticipate DC today. Follow up in 4 weeks. 4. No CP overnight, if CP recurs and persistent then will plan for outpt PCI. SID CARROLL APRN Oct 17, 2018 08:38
[2018-10-17] MEDS ORDERED: TAMSULOSIN 0.4 MG CAP.ER.24H. PO SCH (09:00)
[2018-10-17] MEDS ORDERED: amLODIPine BESYLATE 5 MG TABLET PO SCH (09:00)
[2018-10-17] MEDS ORDERED: CITALOPRAM 10 MG TABLET. PO SCH (09:00)
--- NOTE | 2018-10-17 09:13 | NUR ---
IP: Pt has a hx of + mrsa screen 11/2014 with no negatives. Current screen pending. Pt to be in contact precautions until there are 2 negatives 7 days apart.
--- NOTE | 2018-10-17 09:19 | PDOC3 ---
Discharge Summary Visit Information Date of Admission: Oct 16, 2018 Date of Discharge: Oct 17, 2018 Admitting Diagnosis: EKG abnormality Final Diagnosis NSTEMI Brief Hospital Course Allergies Allergies Coded Allergies Type Severity Reaction Last Updated Verified I S O L A T I O N *CONTACT* Allergy Unknown 11/24/14 Yes No Known Medication Allergies Allergy Unknown 11/24/14 Yes Vital Signs Vital Signs Date Time Temp Pulse Resp B/P (MAP) Pulse Ox O2 Delivery O2 Flow Rate FiO2 10/17/18 03:00 98.3 95 22 133/63 (86) 95 Room Air 98.3 10/16/18 21:20 2.0 Lab Results Laboratory Tests Test 10/16/18 20:10 10/17/18 05:00 White Blood Count 6.3 x10^3/uL (4.0-11.0) Red Blood Count 3.71 x10^6/uL (4.30-5.70) Hemoglobin 12.7 g/dL (13.0-17.5) Hematocrit 36.8 % (39.0-53.0) Mean Corpuscular Volume 99 fL (79-100) Mean Corpuscular Hemoglobin 34 pg (25-35) Mean Corpuscular Hemoglobin Concent 34 g/dL (31-37) Red Cell Distribution Width 13.9 % (11.5-14.5) Platelet Count 170 x10^3/uL (140-400) Neutrophils (%) (Auto) 50 % (31-73) Lymphocytes (%) (Auto) 36 % (24-48) Monocytes (%) (Auto) 11 % (0-9) Eosinophils (%) (Auto) 3 % (0-3) Basophils (%) (Auto) 0 % (0-3) Neutrophils # (Auto) 3.1 x10^3uL (1.8-7.7) Lymphocytes # (Auto) 2.3 x10^3/uL (1.0-4.8) Monocytes # (Auto) 0.7 x10^3/uL (0.0-1.1) Eosinophils # (Auto) 0.2 x10^3/uL (0.0-0.7) Basophils # (Auto) 0.0 x10^3/uL (0.0-0.2) Sodium Level 139 mmol/L (136-145) 141 mmol/L (136-145) Potassium Level 4.1 mmol/L (3.5-5.1) 4.0 mmol/L (3.5-5.1) Chloride Level 105 mmol/L (98-107) 105 mmol/L (98-107) Carbon Dioxide Level 26 mmol/L (21-32) 24 mmol/L (21-32) Anion Gap 8 (6-14) 12 (6-14) Blood Urea Nitrogen 30 mg/dL (8-26) 31 mg/dL (8-26) Creatinine 1.4 mg/dL (0.7-1.3) 1.4 mg/dL (0.7-1.3) Estimated GFR (Cockcroft-Gault) 48.4 48.4 BUN/Creatinine Ratio 21 (6-20) Glucose Level 104 mg/dL (70-99) 103 mg/dL (70-99) Calcium Level 8.4 mg/dL (8.5-10.1) 8.5 mg/dL (8.5-10.1) Total Bilirubin 0.6 mg/dL (0.2-1.0) Aspartate Amino Transf (AST/SGOT) 40 U/L (15-37) Alanine Aminotransferase (ALT/SGPT) 21 U/L (16-63) Alkaline Phosphatase 103 U/L (46-116) Total Protein 6.1 g/dL (6.4-8.2) Albumin 3.0 g/dL (3.4-5.0) Albumin/Globulin Ratio 1.0 (1.0-1.7) Magnesium Level 2.0 mg/dL (1.8-2.4) Troponin I Quantitative 5.145 ng/mL (0.000-0.055) Triglycerides Level 74 mg/dL (0-150) Cholesterol Level 119 mg/dL (0-200) LDL Cholesterol, Calculated 67 mg/dL (0-100) VLDL Cholesterol, Calculated 15 mg/dL (0-40) Non-HDL Cholesterol Calculated 82 mg/dL (0-129) HDL Cholesterol 37 mg/dL (40-60) Cholesterol/HDL Ratio 3.2 Thyroid Stimulating Hormone (TSH) 1.739 uIU/mL (0.358-3.74) Laboratory Tests Test 10/16/18 20:10 10/17/18 05:00 White Blood Count 6.3 x10^3/uL (4.0-11.0) Red Blood Count 3.71 x10^6/uL (4.30-5.70) Hemoglobin 12.7 g/dL (13.0-17.5) Hematocrit 36.8 % (39.0-53.0) Mean Corpuscular Volume 99 fL (79-100) Mean Corpuscular Hemoglobin 34 pg (25-35) Mean Corpuscular Hemoglobin Concent 34 g/dL (31-37) Red Cell Distribution Width 13.9 % (11.5-14.5) Platelet Count 170 x10^3/uL (140-400) Neutrophils (%) (Auto) 50 % (31-73) Lymphocytes (%) (Auto) 36 % (24-48) Monocytes (%) (Auto) 11 % (0-9) Eosinophils (%) (Auto) 3 % (0-3) Basophils (%) (Auto) 0 % (0-3) Neutrophils # (Auto) 3.1 x10^3uL (1.8-7.7) Lymphocytes # (Auto) 2.3 x10^3/uL (1.0-4.8) Monocytes # (Auto) 0.7 x10^3/uL (0.0-1.1) Eosinophils # (Auto) 0.2 x10^3/uL (0.0-0.7) Basophils # (Auto) 0.0 x10^3/uL (0.0-0.2) Sodium Level 139 mmol/L (136-145) 141 mmol/L (136-145) Potassium Level 4.1 mmol/L (3.5-5.1) 4.0 mmol/L (3.5-5.1) Chloride Level 105 mmol/L (98-107) 105 mmol/L (98-107) Carbon Dioxide Level 26 mmol/L (21-32) 24 mmol/L (21-32) Anion Gap 8 (6-14) 12 (6-14) Blood Urea Nitrogen 30 mg/dL (8-26) 31 mg/dL (8-26) Creatinine 1.4 mg/dL (0.7-1.3) 1.4 mg/dL (0.7-1.3) Estimated GFR (Cockcroft-Gault) 48.4 48.4 BUN/Creatinine Ratio 21 (6-20) Glucose Level 104 mg/dL (70-99) 103 mg/dL (70-99) Calcium Level 8.4 mg/dL (8.5-10.1) 8.5 mg/dL (8.5-10.1) Total Bilirubin 0.6 mg/dL (0.2-1.0) Aspartate Amino Transf (AST/SGOT) 40 U/L (15-37) Alanine Aminotransferase (ALT/SGPT) 21 U/L (16-63) Alkaline Phosphatase 103 U/L (46-116) Total Protein 6.1 g/dL (6.4-8.2) Albumin 3.0 g/dL (3.4-5.0) Albumin/Globulin Ratio 1.0 (1.0-1.7) Magnesium Level 2.0 mg/dL (1.8-2.4) Troponin I Quantitative 5.145 ng/mL (0.000-0.055) Triglycerides Level 74 mg/dL (0-150) Cholesterol Level 119 mg/dL (0-200) LDL Cholesterol, Calculated 67 mg/dL (0-100) VLDL Cholesterol, Calculated 15 mg/dL (0-40) Non-HDL Cholesterol Calculated 82 mg/dL (0-129) HDL Cholesterol 37 mg/dL (40-60) Cholesterol/HDL Ratio 3.2 Thyroid Stimulating Hormone (TSH) 1.739 uIU/mL (0.358-3.74) Brief Hospital Course Mr Lowry is a 83yo M p/w atypical chest pain, troponin of 0.9 to his PCP, was admitted urgent cath. 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 One vessel CAD with component of spasm (LAD is a large caliber vessel with mild luminal irregularities, distal 70% stenosis that appears improved on NTG administration. and D1 is a small caliber vessel with a proximal 80% stenosis. 2. Normal LVEDP No longer feeling funny. Denies CP, SOB. Echo - The left ventricle is normal size. The left ventricular systolic function is normal. There LV ejection fraction is 55-60%. There is mild to moderate concentric left ventricular hypertrophy. There is no significant aortic valvular stenosis. Doppler and Color Flow revealed no significant aortic regurgitation. Doppler and Color-flow revealed trace mitral regurgitation. Doppler and Color Flow revealed trace tricuspid regurgitation with an estimated PAP of 31 mmHg Was placed on long acting nitrate, plavix, ASA, coreg with instruction for cardiology f/u outpatient. Assessment: 1. NSTEMI 2. CAD , noncritical stenosis 3. remote tobacco abuse 4. hypertension 5. HXdepression, anxiety 6. hx anemia Plan: Optimized on meds and recommend f/u outpatient PCI if necessary. Outpatient BP monitoring D/c after echo Greater than 30 minutes spent on discharge. Discharge Information Condition at Discharge: Improved Follow Up: Weeks (2) Disposition/Orders: D/C to Home Scheduled Amlodipine Besylate (Norvasc) 5 Mg Tablet, 5 MG PO DAILY for amlodipne, ( Reported) Entered as Reported by: AMALIA MARTINEZ on 10/16/181437 Last Action: Continued on 10/16/181527 by AMALIA MARTINEZ Aspirin (Aspirin Ec) 81 Mg Tablet.dr, 81 MG PO DAILYWBKFT for CAD for 30 Days, # 30 Ref 11 Prescribed by: JAY GHOSH MD on 10/17/18 1306 Atorvastatin Calcium (Lipitor) 10 Mg Tablet, 10 MG PO HS for FOR CHOLESTEROL, # 30 Ref 0 (Reported) Entered as Reported by: AMALIA MARTINEZ on 10/16/181437 Last Action: Continued on 10/16/181527 by AMALIA MARTINEZ Carvedilol (Carvedilol ) 3.125 Mg Tablet, 3.125 MG PO BIDWMEALS for CAD for 30 Days, #60 Ref 5 Prescribed by: JAY GHOSH MD on 10/17/18 1306 Citalopram Hydrobromide (Celexa) 10 Mg Tablet, 1 TAB PO DAILY, #30 Ref 2 ( Reported) Entered as Reported by: GERI CISNEROS on 11/24/14 0302 Last Action: Continued on 10/16/181527 by AMALIA MARTINEZ Clopidogrel Bisulfate (Clopidogrel) 75 Mg Tablet, 75 MG PO DAILYWBKFT for CAD for 30 Days, #30 Ref 11 Prescribed by: JAY GHOSH MD on 10/17/18 1306 Isosorbide Mononitrate (Isosorbide Mononitrate Er) 30 Mg Tab.er.24h, 30 MG PO DAILY for CAD for 30 Days, #30 Ref 5 Prescribed by: JAY GHOSH MD on 10/17/18 1306 Ropinirole Hcl (Requip) 1 Mg Tablet, 2 TAB PO QHS, #30 Ref 2 (Reported) Entered as Reported by: GERI CISNEROS on 11/24/14301 Last Action: Converted on 10/16/181527 by AMALIA MARTINEZ Tamsulosin Hcl (Flomax) 0.4 Mg Cap.er.24h, 0.4 MG PO DAILY for BPH, (Reported) Entered as Reported by: AMALIA MARTINEZ on 10/16/181437 Last Action: Continued on 10/16/181527 by AMALIA MARTINEZ Discontinued Medications Alprazolam (Alprazolam) 0.25 Mg Tablet, 1 TAB PO HS PRN for INSOMNIA, #30 ( Reported) Entered as Reported by: GERI CISNEROS on 11/24/14301 Last Action: Discontinued on 10/16/181432 by AMALIA MARTINEZ Amlodipine Besylate (Amlodipine Besylate) 5 Mg Tablet, 1 TAB PO DAILY, #30 Ref 5 (Reported) Entered as Reported by: GERI CISNEROS on 11/24/14301 Last Action: Discontinued on 10/16/181432 by AMALIA MARTINEZ Hydrocodone Bit/Acetaminophen (Hydrocodone-Apap 7.5-325 ) 1 Each Tablet, 1-2 TAB PO Q6HRS PRN for PAIN, #30 (Reported) Entered as Reported by: GERI CISNEROS on 11/24/14301 Last Action: Discontinued on 10/16/181432 by AMALIA MARTINEZ Ibuprofen (Ibuprofen) 800 Mg Tablet, 1 TAB PO TID PRN for PAIN, #90 (Reported) Entered as Reported by: GERI CISNEROS on 11/24/14301 Last Action: Discontinued on 10/16/181432 by AMALIA MARTINEZ Lisinopril (Lisinopril) 20 Mg Tablet, 1 TAB PO DAILY, #30 Ref 5 (Reported) Entered as Reported by: GERI CISNEROS on 11/24/14301 Last Action: Discontinued on 10/16/181432 by AMALIA MARTINEZ Loratadine (Loratadine) 10 Mg Tablet, 1 TAB PO DAILY, #30 Ref 5 (Reported) Entered as Reported by: GERI CISNEROS on 5/20/15 0302 Last Action: Discontinued on 10/16/181432 by AMALIA MARTINEZ Naproxen (Naproxen) 500 Mg Tablet, 1 TAB PO BID, #60 Ref 1 (Reported) Entered as Reported by: GERI CISNEROS on 11/24/14301 Last Action: Discontinued on 10/16/181432 by AMALIA MARTINEZ Omeprazole (Omeprazole) 40 Mg Capsule.dr, 1 CAP PO DAILY, #30 Ref 3 (Reported) Entered as Reported by: GERI CISNEROS on 11/24/14301 Last Action: Discontinued on 10/16/181432 by JAY TREJO MD Oct 17, 2018 09:18
[2018-10-17] MEDS: ISOSORBIDE MONONITRATE ER 30 MG TAB.ER.24H PO SCH (10:04)
[2018-10-17] MEDS: CARVEDILOL 3.125 MG TABLET. PO SCH (10:05)
[2018-10-17] MEDS ORDERED: CARV3.1210 PO (13:06)
[2018-10-17] MEDS ORDERED: ASPI-612 PO (13:06)
[2018-10-17] MEDS ORDERED: CLOP75TA PO (13:06)
[2018-10-17] MEDS ORDERED: ISOS30TA4 PO (13:06)
--- NOTE | 2018-10-17 13:16 | CARD ---
MR#: [id number] Date of Study: 10/17/2018 Ordering Physician: SID CARROLL, Referring Physician: BROOKE ARANDA, Tech: Jenni Ivey APPROVED REPORT EXAM: Two-dimensional and M-mode echocardiogram with Doppler and color Doppler. Other Information Quality : AverageHR: 71bpm INDICATION Non STEMI RISK FACTORS Hypertension 2D DIMENSIONS RVDd3.4 (2.9-3.5cm)Left Atrium(2D)3.5 (1.6-4.0cm) IVSd1.0 (0.7-1.1cm)Aortic Root(2D)3.5 (2.0-3.7cm) LVDd4.7 (3.9-5.9cm)LVOT Diameter2.2 (1.8-2.4cm) PWd1.2 (0.7-1.1cm)LVDs3.2 (2.5-4.0cm) FS (%) 32.0 %SV63.0 ml LVEF(%)60.1 (>50%) Aortic Valve AoV Peak Mark.129.8cm/sAoV VTI26.6cm AO Peak GR.6.7mmHgLVOT VTI 27.78cm AO Mean GR.4mmHg Mitral Valve MV E Mfxfwlmg16.7cm/sMV DECEL [id number] MV A Cxqwomkz265.9cm/sE/A Ratio0.6 TDI Lateral E' P. V5.73cm/sMedial E' P. V5.21cm/s E/Lateral E'14.1E/Medial E'15.5 Tricuspid Valve TR P. Rtdhnnwo047gy/sRAP [id number] TR Peak Gr.49ihZjBOXP94ppPo Pulmonary Vein S1 Nklfqsce92.8cm/sS2 Rghczykw94.45cm/s D2 Qzskgfdm21.5cm/sPVa [id number] LEFT VENTRICLE The left ventricle is normal size. There is mild to moderate concentric left ventricular hypertrophy. The left ventricular systolic function is normal. There LV ejection fraction is 55-60%. There is nor mal LV segmental wall motion. Transmitral Doppler flow pattern is Grade I-abnormal relaxation pattern . RIGHT VENTRICLE The right ventricle is borderline dilated. There is normal right ventricular wall thickness. The righ t ventricular systolic function is normal. ATRIA The left atrium size is normal. The right atrium size is normal. The interatrial septum is intact wit h no evidence for an atrial septal defect or patent foramen ovale as noted on 2-D or Doppler imaging. AORTIC VALVE The aortic valve is thickened but opens well. Doppler and Color Flow revealed no significant aortic r egurgitation. There is no significant aortic valvular stenosis. MITRAL VALVE Mitral annular calcification is mild to moderate. There is no evidence of mitral valve prolapse. Ther e is no mitral valve stenosis. Doppler and Color-flow revealed trace mitral regurgitation. TRICUSPID VALVE The tricuspid valve is normal in structure and function. Doppler and Color Flow revealed trace tricus pid regurgitation with an estimated PAP of 31 mmHg. There is no tricuspid valve stenosis. PULMONIC VALVE The pulmonary valve is normal in structure and function. Doppler and Color Flow revealed no pulmonic valvular regurgitation. GREAT VESSELS The aortic root is normal in size. The IVC is normal in size and collapses >50% with inspiration. PERICARDIAL EFFUSION There is no evidence of significant pericardial effusion. Critical Notification Critical Value: No <Conclusion> The left ventricle is normal size. The left ventricular systolic function is normal. There LV ejection fraction is 55-60%. There is mild to moderate concentric left ventricular hypertrophy. There is no significant aortic valvular stenosis. Doppler and Color Flow revealed no significant aortic regurgitation. Doppler and Color-flow revealed trace mitral regurgitation. Doppler and Color Flow revealed trace tricuspid regurgitation with an estimated PAP of 31 mmHg. Signed by : Damon Vogt MD Electronically Approved : 10/17/2018 13:16:02
--- NOTE | 2018-10-17 13:48 | NUR ---
Patient OK to discharge per Dr. Tabares and Cardiology. Reviewed Discharge paperwork with patient, including new medications, Cardiac Diet Instructions, ACS Education. Post Cardiac Cath Discharge Instruction sheet provided.
== END 2018-10-17 14:00 | disposition home or self-care (01) | DRG 281 ==
LOC: 1 WEST ICU 12:23
PROVIDERS: ADMIT Internal Medicine; ATTEND Internal Medicine
PROC: 4A023N7 Measurement of Cardiac Sampling and Pressure, Left Heart, Percutaneous Approach (ICD-10-PCS; principal; 2018-10-16)
PROC: B2111ZZ Fluoroscopy of Multiple Coronary Arteries using Low Osmolar Contrast (ICD-10-PCS; 2018-10-16)
DX: I21.4 Non-ST elevation (NSTEMI) myocardial infarction (principal); E44.0 Moderate protein-calorie malnutrition; I25.10 Atherosclerotic heart disease of native coronary artery without angina pectoris; E78.5 Hyperlipidemia, unspecified; F41.9 Anxiety disorder, unspecified; F32.9 Major depressive disorder, single episode, unspecified; I11.9 Hypertensive heart disease without heart failure; Z82.49 Family history of ischemic heart disease and other diseases of the circulatory system; Z87.891 Personal history of nicotine dependence; Z79.899 Other long term (current) drug therapy
CPT/HCPCS: 36415; 80048; 80053; 80061; 83735; 84443; 84484; 85025; 87641; 93306; 93458; 99152; 99153; C1769; C1892; J1644; J2250; J3010; J3490; J7040

== ENCOUNTER → 2019-05-22 | Outpatient (CLI) | payer MEDICARE, BC ==
[2018-10-17 13:00] VITALS: BP 119/67
[~2019-05-22] MED LIST changes: +AMLO5TAB4 PO; +ASPI-612 PO; +ATOR10TA PO; +CARV3.1210 PO; +CLOP75TA PO; +ISOS30TA4 PO; +OMEP40CA45 PO; -OMEP40CA5 PO; +TAMS0.4C97 PO
--- NOTE | 2019-05-23 00:52 | PAIN ---
DATE OF SERVICE: 05/22/2019 INITIAL CONSULTATION FOR PAIN CLINIC CHIEF COMPLAINT: Low back and bilateral lower extremity pain. HISTORY OF PRESENT ILLNESS: This is an 83-year-old male who presents with history of pain in the low back for multiple years, but worse over the past year or so in the low back, bilateral lower extremities, posterior gluteus, posterior thigh, lateral thigh, anterior thigh, medial thigh as well as in the upper area of the right hip and iliac crest on the right side. The patient reports his legs are "giving out," falling and stumbling with walking, better with sitting or lying down; does not generally awaken him from sleep at night, but can sometimes up to 4 times, but not every night. The patient reports it does affect his bowel or bladder control, but no incontinence. Does affect his ability to walk. He is using a cane, which he has with him today. Also, uses a walker when he is at home as his legs feel significantly weak, worse on the right than the left, but present with weakness bilaterally. The patient has had physical therapy in the past as well as some chiropractic treatments in the past, but again many years ago. He also had some epidural injections, which were helpful many years ago in [place], [place]. The patient reports the pain is not radiating. It is constant, aching, sharp, shooting, sometimes numbness and tingling in the legs and significant fatigability of the right leg, especially with ambulation. The patient reports a disability rating from 0-10, 10 being the worst, is an 8 with family and home responsibilities, 10 with recreation, occupation and sexual behavior, 9 with social activity, 7 with self-care, 9 with life-support activities. The patient did have MRI scan of the lumbar spine showing a large diffuse disk bulge at L1-L2 with left central disk protrusion, anterior effacement of the thecal sac at that level with multilevel degenerative changes and bulging disks, largest at L1-L2 and left central disk protrusion, grade 1 degenerative anterolisthesis of L4 and L5, moderate diffuse disk bulging at L2-L3 as well as L4-L5. Previous surgery is noted with the laminectomy defect on the left at L5-S1. The patient reports no overt loss of motor function, but significant fatigability and stumbling with instability with walking more than about 5-10 minutes. PAST MEDICAL HISTORY: Significant for hypertension, quit smoking many years ago, history of arthritis, falls, urinary incontinence. PAST SURGICAL HISTORY: Previous surgeries include lumbar laminectomy and left ankle fusions bilaterally; history of prostate cancer as well, in remission. CURRENT MEDICATIONS: Include carvedilol, isosorbide, clopidogrel, Norvasc, Lipitor, hydrobromide, citalopram, Requip and Flomax. ALLERGIES: The patient has no known drug allergies. FAMILY HISTORY: Significant for diabetes. SOCIAL HISTORY: The patient does not drink alcohol, does not smoke, quit many years ago. Does not use any illegal, illicit or recreational drugs. 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 REVIEW OF SYSTEMS: The patient's review of systems is positive for those items mentioned in history of present illness. All systems reviewed and otherwise negative. It is complete, full and well documented on the patient's chart. PHYSICAL EXAMINATION: VITAL SIGNS: The patient's blood pressure is 124/67, pulse 65, respirations 16, temperature is 98.1 degrees Fahrenheit, height is 5 feet 8 inches, weight is 168 pounds. GENERAL: The patient is awake, alert, oriented, appropriate, very pleasant demeanor. The patient is accompanied by his spouse. HEENT: Head shows normocephalic, atraumatic. Extraocular movements are intact and symmetrical. Oral cavity: Mucous membranes moist and pink. Dentition is intact. NECK: Shows anterior throat supple without palpable lymphadenopathy noted. Swallow reflex symmetrical. CHEST: Shows normal on inspection. Breath sounds clear to auscultation bilaterally. HEART: Shows S1, S2 clear. No murmurs auscultated. ABDOMEN: Soft, nontender, nondistended. No palpable organomegaly is noted. No rebound or guarding demonstrated. BACK: Shows spine grossly in the midline. Normal-appearing thoracic and lumbar lordotic curvature. There is some slight flattening in the lumbar distribution with a well-healed surgical scar in the midline. Lumbar paraspinous muscle shows symmetrical on inspection, but firm and moderately tender, diffusely throughout the upper, middle and lower distribution of paraspinous muscles. Some minor tenderness over the posterior superior iliac spines bilaterally with palpation, but only minor without radiation. The patient has good rotational motion of lumbar spine, both laterally greater than 10 degrees right and left as well as extension greater than 10 degrees, forward flexion 45 degrees without significant pain reported. EXTREMITIES: The patient's lower extremities show deep tendon reflexes 1+ in the patellar and tendo-calcaneus tendons are equal. Motor exam is approximately 4 on a scale of 5, but symmetrical dorsiflexion, extension, quadriceps and hamstring flexion. The patient has had previous surgery on both ankles with everted appearance with enlarged appearing medial malleoli bilaterally. The patient has good strength though with 4/5 dorsiflexion and extension and good mobility despite the previous ankle conditions. Peripheral pulses are 1+ in the dorsalis pedis. No peripheral edema is noted. Bilateral lower extremities are warm and dry to touch, equal in color and appearance. Straight leg raise noted to be positive on the right about 45 degrees, negative on the left, decreased on the right with knee flexion, however Gaenslen's and Milton's maneuvers are negative bilaterally. The patient is able to stand, has difficult trying to stand on his toes, he loses balance quickly, he is using a cane and his right hand has a 4-point walking cane and does have a significant gait favoring the right lower extremity with ambulating. The patient's skin shows warm and dry, good turgor. No edema. No sores, rashes or bruising throughout. IMPRESSION: 1. This is an 83-year-old male with a long history of low back pain, right greater than left, worse over the past year or so with ambulation, especially in a radicular pattern. 2. MRI scan of lumbar spine as noted. 3. Hypertension. 4. Hearing loss. 5. Arthritis. 6. History of prostate cancer. PLAN: Options were discussed with the patient including conservative medical management, physical therapy, interventional techniques. He would like to pursue interventional techniques as these have helped him in the past. We discussed a lumbar epidural steroid injection using description as well as anatomical models to describe the procedure. 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 If deemed safe and acceptable, we will have him return after holding the Plavix for lumbar epidural steroid injection at that time. MARIANELA GALVIN MD DR: DEMARCUS/lacy JOB#: [id number] / [id number] LAURA Titus MD
== END | disposition home or self-care (01) ==
LOC: PNCL 10:15
PROVIDERS: ATTEND Anesthesiology
DX: M54.5 Low back pain (principal); M79.604 Pain in right leg; M79.605 Pain in left leg; I10 Essential (primary) hypertension; M19.90 Unspecified osteoarthritis, unspecified site; H91.90 Unspecified hearing loss, unspecified ear; Z85.46 Personal history of malignant neoplasm of prostate; Z87.891 Personal history of nicotine dependence
CPT/HCPCS: G0463

== ENCOUNTER → 2019-06-02 | Outpatient (CLI) | payer MEDICARE, BC ==
[2018-10-17 13:00] VITALS: BP 119/67
[~2019-06-02] MED LIST changes: +IOHEXOL 180 MG/ML 10 ML VIAL. ONE; +methylPREDNISolone ACETATE 40 MG/ML VIAL. ONE; +methylPREDNISolone ACETATE 80 MG/ML VIAL. ONE
--- NOTE | 2019-06-02 11:15 | PAIN ---
DATE OF SERVICE: 06/02/2019 PROGRESS NOTE FOR PAIN CLINIC DIAGNOSES: Lumbar radiculopathy with lumbar degenerative disk disease, lumbar spinal stenosis and post-lumbar laminectomy syndrome. 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 He has been off it now for 7 days and would like to proceed with a procedure today. The patient reports still significant pain in the low back and bilateral lower extremities as it was previously, right and left essentially equal at this time. The patient reports it is aching and stabbing in the low back, right lower extremity, anterior thighs, anterior medial thighs, medial lower legs, bilaterally into the feet as well. The patient reports it is an 8 on a scale of 10 at its worst over the past week, 8 on average, 6 at its least and is an 8 today. The patient reports no new motor or sensory deficits, no new bowel or bladder incontinence. PHYSICAL EXAMINATION: VITAL SIGNS: The patient's blood pressure 138/74, pulse 66, respirations 18, temperature 97.7 degrees Fahrenheit, height is 5 feet 8 inches and weight is 165 pounds. GENERAL: The patient is awake, alert, oriented, appropriate, very pleasant demeanor. HEENT: Shows normocephalic, atraumatic. Extraocular movements are intact and symmetrical. Oral cavity: Mucous membranes moist and pink. Dentition is intact. NECK: Shows anterior throat supple without palpable lymphadenopathy noted. Swallow reflex symmetrical. CHEST: Shows normal on inspection. Breath sounds clear bilaterally. HEART: Shows S1, S2 clear. No murmurs auscultated. ABDOMEN: Soft, nontender, nondistended. No palpable organomegaly is noted. No rebound or guarding demonstrated. BACK: Shows spine grossly in the midline. Normal-appearing thoracic kyphosis and minor flattening of lumbar lordotic curvature with well-healed surgical scar noted. Lumbar paraspinous muscle shows symmetrical on inspection, on palpation shows some moderate tenderness diffusely bilaterally going diffusely without significant radiation. EXTREMITIES: The patient's lower extremities show deep tendon reflexes at 1+ in the patellar and tendo calcaneus tendons are equal. Motor exam is approximately 4 on a scale of 5, but symmetrical with dorsiflexion, extension, quadriceps and hamstring flexion and equal right and left. Peripheral pulses are 1+ posterior tibia. No peripheral edema is noted. Options were discussed with the patient. The patient's old chart was reviewed as his current medication regimen updated. Current review of systems updated today as well. We will proceed with a lumbar epidural steroid injection. Today is the first in this series. Risks were discussed including but not limited to bleeding, infection, possibility of epidural hematoma, subsequent neurological compromise, dural puncture, headaches, spinal cord and/or nerve damage, side effects of steroid medication and poor results regarding pain control. The patient understands and wished to proceed. The patient will return to clinic in approximately 2 weeks for followup. He was counseled as to return appointment, activity level and side effects to be aware of. The patient will restart his Plavix starting tomorrow he takes in the a.m. DIAGNOSES: Lumbar radiculopathy with lumbar degenerative disk disease, lumbar spinal stenosis and post-lumbar laminectomy syndrome. PROCEDURE: Lumbar epidural steroid injection, translaminar approach at L3-L4 level using C-arm fluoroscopic guidance under sterile prep and drape using local anesthetic. MEDICATION INJECTED: A total of 120 mg Depo-Medrol plus 10 mL of preservative-free normal saline and 2 mL of contrast. CONDITION AT DISCHARGE: Stable. The patient tolerated procedure well, had no complications. MARIANELA GALVIN MD DR: DEMARCUS/lacy JOB#: [id number] / [id number]
== END ==
LOC: PNCL 09:42
PROVIDERS: ATTEND Anesthesiology
DX: M51.16 Intervertebral disc disorders with radiculopathy, lumbar region (principal); M96.1 Postlaminectomy syndrome, not elsewhere classified; M48.061 Spinal stenosis, lumbar region without neurogenic claudication
CPT/HCPCS: 62323; J1030; J1040; Q9965

== ENCOUNTER → 2019-06-23 | Outpatient (CLI) | payer MEDICARE, BC ==
[2018-10-17 13:00] VITALS: BP 119/67
--- NOTE | 2019-06-23 11:49 | PAIN ---
DATE OF SERVICE: 06/23/2019 PROGRESS NOTE FOR PAIN CLINIC DIAGNOSES: Lumbar radiculopathy with lumbar degenerative disk disease, lumbar spinal stenosis and post-lumbar laminectomy syndrome. HISTORY OF PRESENT ILLNESS: The patient 83-year-old male who returns for followup status post lumbar epidural steroid injection x 1. The patient reports about 50% improvement in the low back and bilateral lower extremity pain. The patient reports no new motor or sensory deficits, no new bowel or bladder incontinence, has been increasing activity, greater distance walking, doing work activities, household activities, although he was using [employer] about a week ago and this caused the pain to be increased in the low back. The patient reports it is an 8 on a scale of 10 at its worst over the past week, 7 on average, 5 at its least and is a 5 today. The patient reports it is becoming more constant and aching in the low back, although is much better and still improved with some increase in activity. The patient reports no new changes, no bowel or bladder incontinence or other complaints. PHYSICAL EXAMINATION: VITAL SIGNS: The patient's blood pressure 141/75, pulse is 87, respirations are 18, temperature 97.2 degrees Fahrenheit, height is 5 feet 8 inches, weight is 160 pounds. GENERAL: The patient is awake, alert, oriented, appropriate, very pleasant demeanor. The patient is accompanied by his spouse. HEENT: Shows normocephalic, atraumatic. Extraocular movements are intact and symmetrical. Oral cavity: Mucous membranes moist and pink. Dentition is intact. NECK: Shows anterior throat supple without palpable lymphadenopathy noted. Swallow reflex symmetrical. CHEST: Shows normal on inspection. Breath sounds are clear bilaterally. HEART: Shows S1, S2 clear. No murmurs auscultated. ABDOMEN: Soft, nontender, nondistended. No palpable organomegaly is noted. No rebound or guarding demonstrated. BACK: Shows spine grossly in the midline. Normal appearing thoracic kyphosis and lumbar lordotic curvature slightly flattened with well-healed surgical scar noted. Lumbar paraspinous muscle shows symmetrical on inspection, on palpation shows some moderate tenderness diffusely bilaterally going diffusely without significant radiation. EXTREMITIES: The patient's lower extremities show deep tendon reflexes at 1+ in the patellar and tendo calcaneus tendons and are equal. Motor exam is approximately 4 on a scale of 5, but symmetrical and equal bilaterally as well. Peripheral pulses are 1+ posterior tibia. No peripheral edema is noted. Options were discussed with the patient. The patient's old chart was reviewed as his current medication regimen updated. Current review of systems updated today as well. We will proceed with a second in the series of lumbar epidural steroid injection today with fluoroscopic guidance. Risks were again discussed including, but not limited to bleeding, infection, possibility of epidural hematoma, subsequent neurological compromise, dural puncture, headaches, spinal cord and/or nerve damage, side effects of steroid medication and poor results regarding pain control. The patient understands and wished to proceed. The patient will return to clinic in approximately 2 weeks for followup. He was counseled on return appointment, activity level and side effects to be aware of. DIAGNOSES: Lumbar radiculopathy with lumbar degenerative disk disease, lumbar spinal stenosis and post-lumbar laminectomy syndrome. PROCEDURE: Lumbar epidural steroid injection, translaminar approach, L3-L4 level using C-arm fluoroscopic guidance under sterile prep and drape using local anesthetic. MEDICATION INJECTED: A total of 120 mg Depo-Medrol plus 10 mL of preservative-free normal saline and 2 mL of contrast. CONDITION AT DISCHARGE: Stable. The patient tolerated the procedure well, had no complications. MARIANELA GALVIN MD DR: DEMARCUS/lacy JOB#: [id number] / [id number]
== END ==
LOC: PNCL 10:24
PROVIDERS: ATTEND Anesthesiology
DX: M51.16 Intervertebral disc disorders with radiculopathy, lumbar region (principal); M96.1 Postlaminectomy syndrome, not elsewhere classified; M48.061 Spinal stenosis, lumbar region without neurogenic claudication
CPT/HCPCS: 62323; J1030; J1040; Q9965

== ENCOUNTER → 2019-07-10 | Outpatient (CLI) | payer MEDICARE, BC ==
[2018-10-17 13:00] VITALS: BP 119/67
--- NOTE | 2019-07-10 13:41 | PAIN ---
DATE OF SERVICE: 07/10/2019 PROGRESS NOTE PAIN CLINIC DIAGNOSES: Lumbar radiculopathy with lumbar degenerative disk disease, lumbar spinal stenosis and post-lumbar laminectomy syndrome. HISTORY OF PRESENT ILLNESS: The patient is an 83-year-old male who returns for followup status post lumbar epidural steroid injection x 2. The patient reports about 90% improved in the low back, still some pain in the legs and in the ankles. The patient reports otherwise he is doing well. He did increase his distance walking, doing greater activities around the house, traveling with greater ease and comfort. The patient reports his pain is a 2 on a scale of 10 at its worst over the past week, 2 on average and is 1 at its least. The patient reports it is 2 today. The patient reports it is aching in the legs, especially with walking, standing, but much better in the back and the upper leg and hips. The patient reports no new motor or sensory deficits. Sleeping well at night. PHYSICAL EXAMINATION: VITAL SIGNS: The patient's blood pressure 133/75, pulse 90, respirations 18, temperature 97.3 degrees Fahrenheit, height is 5 feet 8 inches, weight is 163 pounds. GENERAL: The patient is awake, alert, oriented, appropriate, very pleasant demeanor. HEENT: Shows normocephalic, atraumatic. Extraocular movements are intact and symmetrical. Oral cavity, mucous membranes moist and pink. Dentition is intact. NECK: Shows anterior throat is supple. CHEST: Shows normal on inspection. Breath sounds are clear bilaterally. HEART: Shows S1, S2 clear. ABDOMEN: Soft, nontender, nondistended. BACK: Shows spine grossly in the midline, normal-appearing cervical lordotic curvature. Some increase in thoracic kyphosis and some minor flattening of lumbar lordotic curvature. Lumbar spine shows well-healed surgical scarring. Lumbar paraspinous muscle shows symmetrical on inspection, with palpation shows some moderate tenderness and is firm throughout the upper, middle and lower distribution of paraspinous muscles, but diffusely tender bilaterally but without radiation. The patient has good rotational motion of the lumbar spine laterally as well as extension and flexion without significant difficulty. EXTREMITIES: Lower extremities show deep tendon reflexes 1+ in the patellar and tendo-calcaneus tendons. Motor exam is approximately 4 on a scale of 5, and equal with dorsiflexion, extension, quadricep, and hamstring flexion. Peripheral pulses are 1+ in the posterior tibia. No peripheral edema bilaterally. Options were discussed with the patient. The patient's old chart was reviewed as his current medication regimen updated. Current review of systems updated today as well. We will proceed with a third in the series of lumbar epidural steroid injection today with fluoroscopic guidance. Risks were again discussed including, but not limited to bleeding, infection, possibility of epidural hematoma, subsequent neurological compromise, dural puncture, headaches, spinal cord and/or nerve damage, side effects of steroid medication and poor results regarding pain control. The patient understands and wished to proceed. The patient will return to clinic in approximately 2 weeks for followup. She was counseled on return appointment, activity level and side effects to be aware of. DIAGNOSIS: Lumbar radiculopathy with lumbar degenerative disk disease, lumbar spinal stenosis and lumbar post-laminectomy syndrome. PROCEDURE: Lumbar epidural steroid injection, translaminar approach L3-L4 level using C-arm fluoroscopic guidance under sterile prep and drape using local anesthetic. MEDICATION INJECTED: A total of 120 mg Depo-Medrol plus 10 mL of preservative-free normal saline and 2 mL of contrast. CONDITION AT DISCHARGE: Stable. The patient tolerated the procedure well, had no complications. MARIANELA GALVIN MD DR: DEMARCUS/lacy JOB#: [id number] / [id number]
== END ==
LOC: PNCL 09:53
PROVIDERS: ATTEND Anesthesiology
DX: M51.16 Intervertebral disc disorders with radiculopathy, lumbar region (principal); M96.1 Postlaminectomy syndrome, not elsewhere classified; M48.061 Spinal stenosis, lumbar region without neurogenic claudication
CPT/HCPCS: 62323; J1030; J1040; Q9965